=== PATIENT | male | born 1950 | race Caucasian/White ===

== ENCOUNTER 2021-07-15 19:43 | Inpatient (IN) | payer OTHER ==
[~2021-07-15] VITALS: Ht 152.4 cm; Wt 112.5 kg
--- NOTE | ~2021-07-15 | EMS ---
[address] [address] EMS Patient Care Report Name: PRABHA SINGER Room #: 463-P [facility] IN M.R.#: [id number] Admission: 07/16/21 Attend Phys: Antwon Sawant Discharge: 07/22/21 Date of : 52 Report #: [id number] THIS REPORT FOR: //name// Report Transmitted: 07/26/2021 13:59 EMS Care Summary [place], [place]/[facility] Incident [id number] @ 07/15/2021 18:51 Incident Location [address] [place], [place] [id number] Patient PRABHA SINGER Male, 70 Years 1950 Patient Address [address] [place] [address] Patient History None Reported, Patient Allergies No known allergies, Patient Medications None Reported, Chief Complaint Weakness Disposition Transported No Lights/[place] Dispatch Reason Unknown Problem/Person Down Transported To [facility] Narrative M42 arrived on scene to find the patient lying supine on the ground. Patient said he had been on the ground since yesterday. Patient was naked and had what appeared to be fecal matter on his hands and legs. Patient's neighbors had heard him calling for help and called 911. Patient denied falling, patient said [address] [address] EMS Patient Care Report Name: PRABHA SINGER Room #: 463-P DIS IN M.R.#: [id number] Admission: 07/16/21 Attend Phys: Antwon Jones Jese Discharge: 07/22/21 Date of : 52 Report #: [id number] for some reason he was unable to get out of the garage. Patient decided to lay down on the ground and was unable to get back up. Patient denied head, neck, or back pain. No obvious trauma was found. Patient was unsure of why he was naked. Patient said he had been feeling weak for the patient week. Patient was stood up and sat down on the cot. Patient was secured with seat belts. Patient denied chest pain, shortness of breath, fever, or cough. En route to the hospital no changes in the patient condition occurred. M42 arrived on scene of the hospital and patient care was transferred to the RN. Initial Vitals @19:14P: 39,SpO2: 91, @19:31P: 110,BP: 115/69, @19:19P: 114,BP: 56/29,SpO2: 93, @19:15P: 52,R: 16,BP: 85/27,Pain: 4/10,GCS: 15,Glucose: 137,SpO2: 95,Revised Trauma: 11, @19:27P: 102,R: 16,BP: 183/146,Pain: 0/10,GCS: 15,SpO2: 94,Revised Trauma: 12, @19:17P: 104,R: 16,BP: 71/45,Pain: 4/10,GCS: 15,SpO2: 90,Revised Trauma: 10, Assessments @19:08MENTAL:No Abnormalities,SKIN:Cold,HEENT:Head/Face: No Abnormalities,Eyes: No Abnormalities,Neck/Airway: No Abnormalities,LUNG SOUNDS:General: No Abnormalities,Left Upper: No Abnormalities,Right Upper: No Abnormalities,Left Lower: No Abnormalities,Right Lower: No Abnormalities,ABDOMEN:General: No Abnormalities,Left Upper: No Abnormalities,Right Upper: No Abnormalities,Left Lower: No Abnormalities,Right Lower: No Abnormalities,PELVIS//GI:Incontinence,EXTREMITIES:Left Arm: No Abnormalities,Right Arm: No Abnormalities,Left Leg: No Abnormalities,Right Leg: No Abnormalities,PULSE:NEURO:No Abnormalities,@19:20MENTAL:Time Oriented,Event Oriented,Place Oriented,Person Oriented,SKIN:Cold,HEENT:Head/Face: No Abnormalities,Eyes: No Abnormalities,Neck/Airway: No Abnormalities,LUNG SOUNDS:General: No Abnormalities,Left Upper: No Abnormalities,Right Upper: No Abnormalities,Left Lower: No Abnormalities,Right Lower: No Abnormalities,ABDOMEN:General: No Abnormalities,Left Upper: No Abnormalities,Right Upper: No Abnormalities,Left Lower: No Abnormalities,Right Lower: No Abnormalities,PELVIS//GI:Incontinence,EXTREMITIES:Left Arm: No Abnormalities,Right Arm: No Abnormalities,Left Leg: No Abnormalities,Right Leg: No Abnormalities,PULSE:NEURO:No Abnormalities, Impression Generalized Weakness Procedures @19:08 ALS Assessment Response: UnchangedSucceeded Timeline [facility] [address] [place] [address] EMS Patient Care Report Name: PRABHA SINGER Room #: 463-P [facility] IN M.R.#: [id number] Admission: 07/16/21 Attend Phys: Antwon Sawant Discharge: 07/22/21 Date of : 52 Report #: [id number] 18:50,Call Received 18:50,Dispatch Notified 18:51,Dispatched 18:53,En Route 19:07,On Scene 19:08,At Patient 19:08,ALS Assessment,Response: UnchangedSucceeded, 19:14,BP: / M,PULSE: 39,RR: R,SPO2: 91 Ox,ETCO2: ,BG: ,PAIN: ,GCS: , 19:15,BP: 85/27 M,PULSE: 52,RR: 16 R,SPO2: 95 Ox,ETCO2: ,B,PAIN: 4,GCS: 15, 19:17,BP: 71/45 M,PULSE: 104,RR: 16 R,SPO2: 90 Ox,ETCO2: ,BG: ,PAIN: 4,GCS: 15, 19:19,BP: 56/29 M,PULSE: 114,RR: R,SPO2: 93 Ox,ETCO2: ,BG: ,PAIN: ,GCS: , 19:20,Depart Scene 19:27,BP: 183/146 M,PULSE: 102,RR: 16 R,SPO2: 94 Ox,ETCO2: ,BG: ,PAIN: 0,GCS: 15, 19:31,BP: 115/69 M,PULSE: 110,RR: R,SPO2: Ox,ETCO2: ,BG: ,PAIN: ,GCS: , 19:33,At Destination 19:49,Call Closed Disclaimer v1.1 Copyright 2020 [employer] This EMS Care Summary contains data elements from the applicable legal record (which may be displayed differently). It is designed to provide pertinent information for the following purposes: continuity of care, clinical quality, and state data reporting. The complete legal record is available to ED staff and administrators of the receiving hospital in [employer]'s Patient Tracker. All data is provided "as is."
[2021-07-15 19:45] VITALS: BP 111/78
[2021-07-15 20:10] LABS: ABSOLUTE NEUTROPHILS 15.5 thou/uL (1.4-8.2); BASOPHILS 0.3 % (0.0-2.0); HEMOGLOBIN 16.7 gm/dL (14.0-18.0); LYMPHOCYTES 4.3 % (24.0-44.0); MCH 31.1 pg (26.0-34.0); MCHC 33.4 g/dL (28.0-37.0); MCV 93.1 fL (80.0-100.0); MONOCYTES 7.5 % (1.0-8.0); PLATELET COUNT 319 thou/uL (150-400); POLYS 87.9 % (36.0-66.0); RBC 5.37 mil/uL (4.50-6.00); RDW 13.4 % (10.5-14.5); WBC 17.6 thou/uL (4.0-11.0)
[2021-07-15 20:32] LABS: CALCIUM 9.5 mg/dL (8.5-10.1); CREATININE 1.7 mg/dL (0.7-1.3); POTASSIUM 4.4 mmol/L (3.5-5.1)
[2021-07-15 20:42] LABS: ALBUMIN 3.4 g/dL (3.4-5.0); TOTAL BILIRUBIN 1.7 mg/dL (0.2-1.0); TOTAL PROTEIN 7.4 g/dL (6.4-8.2)
[2021-07-15 20:57] LABS: MAGNESIUM 2.8 mg/dL (1.8-2.4)
[2021-07-15 21:15] LABS: INR 1.18; PROTIME 12.8 Seconds (10.5-12.1)
[2021-07-16 01:17] VITALS: BP 148/74
[2021-07-16] MEDS ORDERED: MELOXICAM15 MG PO (01:53)
[2021-07-16] MEDS ORDERED: LISINOPRIL20 MG PO (01:53)
[2021-07-16] MEDS ORDERED: ROSUVASTATIN CA20 MG PO (01:53)
[2021-07-16] MEDS ORDERED: METFORMIN HCL500 MG PO (01:53)
[2021-07-16 03:07] LABS: URINE BILIRUBIN 1+ (Negative); URINE BLOOD TRACE (Negative); URINE CLARITY CLEAR; URINE COLOR YELLOW; URINE GLUCOSE-RANDOM* NEGATIVE (Negative); URINE KETONES 1+ (Negative); URINE LEUKOCYTES-REFLEX NEGATIVE (Negative); URINE NITRITE-REFLEX NEGATIVE (Negative); URINE PROTEIN (DIPSTICK) NEGATIVE (Negative); URINE SPECIFIC GRAVITY >= 1.030 (1.005-1.035); URINE UROBILINOGEN 0.2 E.U./dl (0.2-1.0)
[2021-07-16 03:11] LABS: ICTOTEST (BILI CONFIRMATORY) Positive (Negative)
[2021-07-16 03:15] LABS: AMP/METHAMP Negative (Negative); BARBITURATES Negative (Negative); BENZODIAZEPINES Negative (Negative); COCAINE Negative (Negative); METHADONE Negative (Negative); OPIATES Negative (Negative); PCP Negative (Negative)
[2021-07-16 05:27] VITALS: BP 143/85
[2021-07-16 07:55] VITALS: BP 142/87
[2021-07-16 08:00] LABS: HEMATOCRIT 45.5 % (42.0-52.0); MCH 30.7 pg (26.0-34.0); MCHC 32.9 g/dL (28.0-37.0); MCV 93.3 fL (80.0-100.0); RBC 4.88 mil/uL (4.50-6.00); RDW 13.4 % (10.5-14.5); WBC 15.3 thou/uL (4.0-11.0)
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
[2021-07-16 08:25] LABS: ANION GAP 14 mmol/L (7-16); BUN 57 mg/dL (7-18); CALCIUM 8.8 mg/dL (8.5-10.1); CHLORIDE 108 mmol/L (98-107); CO2 26 mmol/L (21-32); CREATININE 1.3 mg/dL (0.7-1.3); GLUCOSE 212 mg/dL (74-106); POTASSIUM 4.2 mmol/L (3.5-5.1); SODIUM 148 mmol/L (136-145)
[2021-07-16 08:32] LABS: CHOLESTEROL 218 mg/dL (<200); HDL CHOLESTEROL 31 mg/dL (>40); LDL CHOLESTEROL 152 mg/dL (<100); SGOT 37 U/L (15-37); SGPT 48 U/L (30-65); TOTAL BILIRUBIN 1.4 mg/dL (0.2-1.0); TRIGLYCERIDE 175 mg/dL (<150); VLDL 35 mg/dL (<40)
--- NOTE | 2021-07-16 12:43 | 2DMMODE ---
[facility] [address] [place] [address] 2 D/M-MODE ECHOCARDIOGRAM Name: PRABHA SINGER Room #: 215-P ADM IN M.R.#: [id number] Admission: 07/16/21 Attend Phys: Antwon Sawant Discharge: Date of : 52 Report #: [id number] THIS REPORT FOR: cc: NO FAMILY PHYSICIAN or PCP NO FAMILY PHYSICIAN or PCP Piotr London MD [facility] ~ APPROVED REPORT Study performed: 07/16/2021 11:53:42 EXAM: Comprehensive 2D, Doppler, and color-flow Echocardiogram Patient Location: Bedside Room #: [facility] Status: routine BSA: 2.05 HR: 92 bpm BP: 142/87 mmHg Rhythm: NSR Other Information Study Quality: Fair Technically limited study due to body habitus. Indications Diabetes Syncope Hypertension/HDD 2D Dimensions IVSd: 9.24 (7-11mm) LVOT Diam: 19.91 (18-24mm) LVDd: 53.08 mm PWd: 8.86 (7-11mm) Ascending Ao: 35.81 (22-36mm) LVDs: 31.69 (25-40mm) Left Atrium: 39.32 (27-40mm) Aortic Root: 33.91 mm Aortic Valve AoV Peak Elfego.: 1.27 m/s AO Peak Gr.: 6.42 mmHg LVOT Max P.50 mmHg LVOT Max V: 1.06 m/s ALTON Vmax: 2.61 cm2 Pulmonary Valve [facility] [address] [place] [address] 2 D/M-MODE ECHOCARDIOGRAM Name: PRABHA SINGER Room #: 215-P ADM IN M.R.#: [id number] Admission: 07/16/21 Attend Phys: Antwon Montgomery Discharge: Date of : 52 Report #: [id number] PV Peak Elfego.: 1.03 m/s PV Peak Gr.: 4.20 mmHg Left Ventricle The left ventricle is normal size. There is normal LV segmental wall motion. There is normal left ventricular wall thickness. The left ventricular systolic function is normal. The left ventricular ejection fraction is within the normal range. LVEF is 60-65%. Mild diastolic dysfunction Right Ventricle The right ventricle is normal size. The right ventricular systolic function is normal. Atria The left atrium size is normal. The right atrium size is normal. Aortic Valve The aortic valve is normal in structure. No aortic regurgitation is present. There is no aortic valvular stenosis. Mitral Valve Mild mitral annular calcification No mitral valve regurgitation No evidence of mitral valve stenosis. Tricuspid Valve The tricuspid valve is normal in structure. There is no tricuspid valve regurgitation noted. Pulmonic Valve The pulmonary valve is normal in structure. There is no pulmonic valvular regurgitation. Great Vessels The aortic root is normal in size. The inferior vena cava is not well visualized. Pericardium There is no pericardial effusion. <Conclusion> The left ventricular systolic function is normal. There is normal LV segmental wall motion. LVEF is 60-65%. Mild diastolic dysfunction The aortic valve is normal in structure. No [facility] regurgitation or [facility] [address] [place] [address] 2 D/M-MODE ECHOCARDIOGRAM Name: PRABHA SINGER Room #: 215-P ADM IN M.R.#: [id number] Admission: 07/16/21 Attend Phys: Antwon Montgomery Discharge: Date of : 52 Report #: [id number] stenosis. Mild mitral annular calcification. No mitral valve regurgitation Pulmonary artery pressure could not be reliably ascertained There is no pericardial effusion. <ELECTRONICALLY SIGNED> By: Piotr London MD, FACC 07/16/21 1243 [id number] [id number] Piotr London MD, FACC /INF
--- NOTE | 2021-07-16 15:01 | NUR ---
WOUND CONSULT; THE PATIENT HAS DM/HTN/FAILURE TO THRIVE THE PATIENT FELL IN HIS GARAGE AND IT IS UKNOWN HOW LONG HE WAS ON NTHE CONCRETE. THE PATIENT DOES NOT LOOK MALNURISHED. AREAS OF CONCERN: -BILATERAL/LATERAL MALLEOLUS BRUISING VS DTI. -BILATERAL TOES BRUISING VS DTI. -LEFT KNEE BRUISING VS DTI -SMALL RIGHT BUTTOCK, MULITPLE SMALL AREAS OF BRUISING. RECOMMENDATIONS; -ADD A LOW AIRLOSS PUMP. -PAINT ALL BRUISED AREAS WITH BETADINE CORPORATE COMMUNICATIONS INTERN DAILY. DISCUSSED W/ RN. -
[2021-07-16 15:30] VITALS: BP 116/49
--- NOTE | 2021-07-16 16:13 | NUR ---
PT SLEEPING IN BED AT THIS TIME. PT VERY DROWSY. PT VSS, AX0X3 BUT CONFUSED AT TIMES. PT ON ROOM AIR; DENIES SOA. DENIES CHEST PAIN. WOUND CARE CONSULTED TODAY FOR WOUNDS ON FEET AND ANKLES; MAINTENANCE PORTER COMPLETED WOUND CARE TODAY. ADDED PRESSURE REDUCTION BOOTS TODAY. ASSESSMENTS CHARTED. FALL PRECAUTIONS IN PLACE AND CALL LIGHT WITHIN REACH.
--- NOTE | 2021-07-16 16:55 | NUR ---
Patient admits after been found in garage, covered in feces. he has a [place]cl[place] he reports his neighbor has his dog. Patient cannot recall numbers for relatives or names. Patient can tell his son name is Sterling Kidd and lives in [facility]. He is but cannot recall wifes name. They have a child who is not school age. He recalls his best friends name as Zaid St Nilda lives in [place] as well. Director of casemgt inquiring. Patient to be evaled for rehab, Need to locate family to discuss dc planning.
[2021-07-16 20:00] VITALS: BP 142/68
[2021-07-16 23:47] VITALS: BP 113/56
[2021-07-17 01:06] LABS: GLYCOHEMOGLOBIN (HGB A1C) 7.5 % (4.8-5.6)
[2021-07-17 03:18] VITALS: BP 1233/55
[2021-07-17 03:20] VITALS: BP 129/63
--- NOTE | 2021-07-17 03:29 | NUR ---
PATIENT TRANSFERRED TO ROOM 463. DETAILED REPORT GIVEN TO JEANINE WARD.
--- NOTE | 2021-07-17 05:14 | NUR ---
PT WAS TRANSFERRED 2N TO THE UNIT AT 0320. PT IS ALERT AND ORIENTED X4. PT WAS ORIENTED TO THE ROOM. VS ARE WITHIN NORMAL RANGE. PT IS ON RA. FALL PRECAUTIONS IN PLACE. WILL CONTINUE TO MONITOR.
[2021-07-17 07:23] LABS: FOLIC ACID 4.1 ng/mL (8.6-58.9)
[2021-07-17 07:56] VITALS: BP 129/75
[2021-07-17 10:56] LABS: CALCIUM 8.4 mg/dL (8.5-10.1); CREATININE 1.2 mg/dL (0.7-1.3); POTASSIUM 3.4 mmol/L (3.5-5.1)
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
[2021-07-17 16:57] VITALS: BP 121/54
--- NOTE | 2021-07-17 19:20 | NUR ---
PT ALERT AND ORIENTED TIMES FOUR. VSS. PT DENIES PAIN/SOA. PT TOLERATES MEDS AND MEALS. PT FAMILY AT BEDSIDE THIS AFTERNOON. PT PROGRESSING TOWRADS POC GOALS.
[2021-07-17 19:52] VITALS: BP 119/61
[2021-07-17 23:57] VITALS: BP 123/75
[2021-07-18 05:20] VITALS: BP 130/68
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
[2021-07-18 07:54] VITALS: BP 105/51
[2021-07-18 12:38] VITALS: BP 105/55
[2021-07-18 15:30] VITALS: BP 102/51
--- NOTE | 2021-07-18 17:01 | NUR ---
PT HAD SECOND PART OF HIS STRESS TEST THIS DAY. [employer] TO ASSESS PT FOR [place] AND [place] WAS TO COMPLETE DPOA THIS DAY. CM TO REACH OUT TO PT AND SON REGARDING WHERE THEY WANT SKILLED REFERRALS SENT. CM FOLLOWING REGARDING DC PLANNING.
[2021-07-18 20:05] VITALS: BP 142/66
[2021-07-19 00:58] VITALS: BP 128/77
[2021-07-19 04:48] VITALS: BP 130/73
--- NOTE | 2021-07-19 05:50 | NUR ---
PATIENT AOX2/3 CONFUSED AND FORGETFUL. PATIENT CALM AND COOPERATIVE WITH CARE AND MEDS. PATIENT REQUESTED TO BE UP IN THE RECLINER FOR A FEW HOURS. FLUID ENCOURAGED. FALL PRECAUTION IN PLACE. PATIENT IN BED ASLEEP AT THIS TIME BREATHING REGULAR AND UNLABOURED.
[2021-07-19 06:41] VITALS: BP 127/68
[2021-07-19 07:30] VITALS: BP 135/64
--- NOTE | 2021-07-19 09:58 | NUR ---
WOUND CARE F/U; THE BILATERAL LATERAL MALLEOLOUS HAVE ESCHAR THAT IS ADVANCING BUT IS STABLE. NO ODOR OR DRAINAGE. CONTINUE WITH BETADINE, COVER WITH AN ABD AND SECURE WITH KERLIX,TAPE IF THESE WOUNDS BECOME UNSTABLE. DISCUSSED WITH RN
--- NOTE | 2021-07-19 17:11 | NUR ---
Pt A & O x3 with forgettfullness noted. Pt VS stable. Pt is room air. 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 Pt worked with PT/OT this shift. Pt had BM this shift. Pt received medications as ordered. Pt is able to make needs known
[2021-07-19 21:40] VITALS: BP 128/88
--- NOTE | 2021-07-20 02:29 | NUR ---
assumed care approx 1900 evening 07/19. pt alert and awake, forgetful and confused at times. pt fussy with multiple requests for various items. pt requested to sit in chair and then back to bed and then chair again. pt took hs meds with water tolerating well. pt up to bsc to have bm tonight. pt appears to be back to bed sleeping at present. bed alarm on and call light in reach. will continue to monitor.
[2021-07-20 07:00] VITALS: BP 157/75
--- NOTE | 2021-07-20 12:23 | NUR ---
ASSUMED PT CARE THIS AM. PT A&OX4, ABLE TO MAKE NEEDS KNOWN. PATIENT REPORTING PAIN THAT DECREASES WITH REPOSITIONING IN BED. PATIENT REPOSITIONED SIDE TO SIDE FREQUENTLY. IV REMAINS PATENT, MEDICAITON INFUSED WITHOUT ISSUE. PATIENT ON ROOM AIR. PATIENT ON TELEMETRY. FALL PRECAUTIONS ARE IN PLACE, CALL LIGHT WITHIN REACH.
[2021-07-20 16:00] VITALS: BP 132/68
[2021-07-20 19:54] VITALS: BP 120/53
--- NOTE | 2021-07-21 06:02 | NUR ---
ASSUMED CARE OF PT AT 1900. PT ASSESSED TO BE AOX3 70M PRESENTING WITH FALLS, CONFUSION, AND ELEVATED CPK. PT WAS ABLE TO REST SOME OF THE NIGHT IN ROOM, BUT WAS UNEASY AND ANXIOUS UNTIL AROUND 0200. PT REMAINED STABLE ON ROOM AIR, SUGARS WELL CONTROLLED, ABLE TO GET UP X1 WITH A WALKER, HAD A LARGE BM ON THE COMMODE, AND RUNS SINUS ARRYTHMIA ON THE MONITOR. DURING EARLY EVENING PT COULD NOT GET COMFORTABLE AND FREQUENTLY ASKED TO SIT ON EDGE OF BED, EVENTUALLY GETTING TO CHAIR AND ALLOWING HIM TO REST THROUGHOUT THE REST OF THE MORNING. CONTINENT WITH THE URINAL THROUGHOUT THE NIGHT. RESTING IN CHAIR IN ROOM NOW, WILL CONT TO MONITOR AND UPDATE CARE TEAM.
[2021-07-21 07:00] VITALS: BP 143/61
--- NOTE | 2021-07-21 11:36 | NUR ---
ASSUMED PT CARE THIS AM. PT A&OX3 WITH FORGETFULNESS NOTED. PATIENT AMBULATORY WITH ASSIST AND GAIT BELT AND WALKER. PATIENT HAS BEEN CONTINENT THIS SHIFT. PATIENT ON ROOM AIR. DENIES PAIN, REPOSITIONING FOR COMFORT NEEDED. MEDICATIONS TAKEN WITHOUT ISSUE. IV REMAINS PATENT, SALINE LOCKED. FALL PRECAUTIONS ARE IN PLACE, CALL LIGHT WITHIN REACH.
[2021-07-21 18:00] VITALS: BP 133/75
[2021-07-21 20:15] VITALS: BP 136/67
--- NOTE | 2021-07-21 23:14 | NUR ---
ASSUMED CARE OF PT AT 1915. PT IS A&OX3, WITH REPORTED FORGETFULNESS. IS STABLE. IS ON ROOM AIR. DENIES PAIN. IS ABLE TO REPOSITION SELF IN BED & IN CHAIR. PT REQUESTED TO SLEEP IN RECLINER TONIGHT. STATED, "THE CHAIR SEEMS BETTER FOR ME". ALARM ON & PLUGGED INTO THE WALL. IS UP WITH 1 ASSIST, GB, WALKER. FALL PRECAUTIONS & HOURLY ROUNDING CONTINUED THIS SHIFT. LABS & VITALS REVIWED. CALL LIGHT WITHIN REACH.
[2021-07-22 08:49] VITALS: BP 123/64
--- NOTE | 2021-07-22 12:15 | NUR ---
WOUND CARE F/U; THE PATIENT IS RECLINING IN A CHAIR AT THIS TIME THEREFORE UNABLE TO SEE HIS BUTTOCKS WOUNDS. THE BILATERAL LATERAL MALEOLOUS WOUNDS REMAIN STABLE. STABLE ESCHAR WITH NO DRAINAGE. THESE AREAS ARE THE WNL OF THE LAST ASSESSMENT. RECOMMENDATIONS; -CONTINUE CURRENT TREATMENT.
[2021-07-22 12:19] VITALS: BP 127/59
[2021-07-22] MEDS ORDERED: FOLIC ACID1 MG PO (13:38)
[2021-07-22] MEDS ORDERED: ACETAMINOPHEN325 M1 PO (13:38)
[2021-07-22] MEDS ORDERED: VITAMIN D21250 MCG PO (13:38)
[2021-07-22] MEDS ORDERED: CEFUROXIME500 MG PO (13:38)
[2021-07-22] MEDS ORDERED: DOXYCYCLINE HYC50 MG PO (13:38)
[2021-07-22] MEDS ORDERED: PEPCID20 MG PO (13:38)
--- NOTE | 2021-07-22 14:23 | NUR ---
ASSUMED PT CARE THIS AM. PT A&OX3 BUT FORGETFUL. PATIENT IV PATENT, SALINE LOCKED. PATIENT TOOK ALL MEDICATIONS WITHOUT ISSUE. PATIENT IS ON ROOM AIR. PATIENT IS ON TELEMETRY. PATIENT IS AMBULATORY WITH ASSIST TO THE BEDSIDE COMMODE. PATIENT REPOSITIONED FOR COMFORT. FALL PRECAUTIONS ARE IN PLACE, CALL LIGHT WITHIN REACH.
--- NOTE | 2021-07-22 15:37 | NUR ---
CM SPOKE WITH PT, SON/DPOA HC MARY, AND SISTER BALWINDER THIS AM. THEY ASKED THAT REFERRALS BE SENT TO [facility], AND [facility]. CM CALLED [facility] NO BEDS, [facility] NO BEDS UNTIL LATER THIS [facility] CAN ACCEPT. ALL AGREEABLE WITH DC TO [facility] THIS DAY. CM FAXED ORDERS. CHART COPY MADE. NURSE GIVEN NUMBER FOR REPORT. [facility] ARRANGED FOR 1600. NO OTHER CM INTERVENTION INDICATED. CASE CLOSED.
== END 2021-07-22 16:42 | DRG 871 ==
LOC: ER 19:43 → EROBS 07-16 00:47 → 2N 07-16 00:47 → 4W 07-16 00:47 → ER 07-16 01:09 → EROBS 07-16 01:09 → 2N 07-16 01:52 → 4W 07-17 03:22
PROVIDERS: Emergency Medicine; Hospitalist; Nurse Practitioner Family; ADMIT Hospitalist; ATTEND Hospitalist
DX: A41.89 Other specified sepsis (principal); G92.8 Other toxic encephalopathy; N17.0 Acute kidney failure with tubular necrosis; L03.314 Cellulitis of groin; M62.82 Rhabdomyolysis; E87.0 Hyperosmolality and hypernatremia; Z68.42 Body mass index [BMI] 45.0-49.9, adult; E55.9 Vitamin D deficiency, unspecified; E11.9 Type 2 diabetes mellitus without complications; E87.6 Hypokalemia; Z20.822 Contact with and (suspected) exposure to COVID-19; I10 Essential (primary) hypertension; R62.7 Adult failure to thrive; I95.9 Hypotension, unspecified; E78.5 Hyperlipidemia, unspecified; G90.8 Other disorders of autonomic nervous system; Z60.2 Problems related to living alone; G25.0 Essential tremor; R53.81 Other malaise; E66.01 Morbid (severe) obesity due to excess calories; F03.90 Unspecified dementia, unspecified severity, without behavioral disturbance, psychotic disturbance, mood disturbance, and anxiety; B96.89 Other specified bacterial agents as the cause of diseases classified elsewhere; R29.6 Repeated falls; R41.0 Disorientation, unspecified; Z79.899 Other long term (current) drug therapy; Z23 Encounter for immunization
CPT/HCPCS: 10045; 10081